=== PATIENT | female | born 1930 | race Caucasian/White ===

== ENCOUNTER 2017-01-17 09:00 | Outpatient (RCR) | payer MEDICARE, OTHER | END 2017-02-01 | disposition home or self-care (01) | LOC: PTY 09:00 | DX: Z47.1 Aftercare following joint replacement surgery (principal); Z96.651 Presence of right artificial knee joint | CPT/HCPCS: 97110; 97140; 97162; G8978; G8979 ==

== ENCOUNTER 2017-02-04 08:30 | Outpatient (RCR) | payer MEDICARE, OTHER | END 2017-03-03 | disposition home or self-care (01) | LOC: PTY 08:30 | DX: Z96.651 Presence of right artificial knee joint (principal) | CPT/HCPCS: 97110; 97140; G8978; G8979; G8980 ==